=== PATIENT | male | born 1995 | race Caucasian/White ===

== ENCOUNTER 2020-04-18 07:53 | Emergency (ER) | payer OTHER, BC ==
[~2020-04-18] VITALS: Ht 172.7 cm; Wt 95.9 kg
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
[2020-04-18] MEDS ORDERED: DICL75TA2 PO (08:45)
[2020-04-18 08:55] VITALS: BP 118/59
== END 2020-04-18 08:55 | disposition home or self-care (01) ==
LOC: ER FS 07:55
DX: S39.012A Strain of muscle, fascia and tendon of lower back, initial encounter (principal); V89.2XXA Person injured in unspecified motor-vehicle accident, traffic, initial encounter
CPT/HCPCS: 72100